=== PATIENT | female | born 1955 | race Caucasian/White ===

== ENCOUNTER 2020-10-03 16:29 | Outpatient (CLI) | payer OTHER, SELFPAY | END 2020-10-03 16:30 | disposition home or self-care (01) | LOC: ANHCOVIDVC 16:29 | PROVIDERS: PCP Family Medicine | DX: Z23 Encounter for immunization (principal) | CPT/HCPCS: 0001A; 91300 ==

== ENCOUNTER 2020-10-24 16:31 | Outpatient (CLI) | payer OTHER, SELFPAY | END 2020-10-24 16:32 | disposition home or self-care (01) | LOC: ANHCOVIDVC 16:31 | PROVIDERS: PCP Family Medicine | DX: Z23 Encounter for immunization (principal) | CPT/HCPCS: 0002A; 91300 ==

== ENCOUNTER 2021-12-03 10:15 | Outpatient (CLI) | payer MEDICARE, OTHER, SELFPAY ==
--- NOTE | 2021-12-03 10:28 | ECG_ITS ---
Measurements Intervals [place] Rate: 52 P: 41 NH: 153 QRS: 38 QRSD: 82 T: 50 QT: 409 QTc: 383 Interpretive Statements SINUS BRADYCARDIA BASELINE WANDER- I, II, AVR, AVL, AVF, V1-V3 BORDERLINE ECG Electronically Signed On 12-03-2021 10:51:43 CDT by Oli Lynn D.O.
== END 2021-12-03 10:16 | disposition home or self-care (01) ==
PROVIDERS: PCP Family Medicine; Visit Provider Physician Assistant
DX: R07.9 Chest pain, unspecified (principal); R94.31 Abnormal electrocardiogram [ECG] [EKG]
CPT/HCPCS: 93005

== ENCOUNTER 2022-07-24 01:15 | Day surgery (SDC) | payer MEDICARE, OTHER, SELFPAY ==
[2022-07-23 12:53] VITALS: BMI 34.0
[2022-07-24] VITALS (19 sets, daily range): BP systolic 91–130; BP diastolic 46–66; PULSE 66–76; RESP 12–18; TEMP 36.8; O2SAT 94–99; BMI 34.2
--- NOTE | 2022-07-24 07:47 | SUR.PREOP ---
pre op started on this pt, pre op medicine benedryl and prednisone taken at 0730 for shellfish allergy.
[2022-07-24 08:03] LABS: Anion Gap 13 mmol/L (8-16); Blood Urea Nitrogen 33 mg/dL (7-17); Calcium 9.1 mg/dL (8.4-10.2); Carbon Dioxide 22 mmol/L (22-30); Chloride 102 mmol/L (98-107); Estimated CRCL calculation 69 ml/min; Estimated Glomerular Filt Rate > 60; Glucose 409 mg/dL (65-110); Potassium 4.9 mmol/L (3.4-5.0); Sodium 137 mmol/L (137-145)
[2022-07-24 08:11] LABS: Basophils Percent Auto 0.3 % (0.2-1.2); Hematocrit 39.5 % (37.0-47.0); Hemoglobin 12.9 g/dL (12.0-15.0); Immature Granulocyte Absolute 0.07 K/mm3 (0.00-0.031); Immature Granulocyte Percent A 0.8 % (0-0.5); Lymphocytes Absolute Auto 0.65 K/mm3 (0.9-3.2); Lymphocytes Percent Auto 7.2 % (18.3-44.2); Mean Corpuscular HGB Conc 32.7 g/dl (32-36); Mean Corpuscular Hemoglobin 31.3 pg (26-34); Mean Corpuscular Volume 95.9 fl (80-100); Mean Platelet Volume 10.5 fl (7.4-10.4); Monocytes Absolute Auto 0.1 K/mm3 (0.1-0.6); Monocytes Percent Auto 0.8 % (2.6-8.5); Neutrophils Absolute Auto 8.3 K/mm3 (1.3-6.7); Neutrophils Percent Auto 90.9 % (45.5-73.1); Platelet Count Result 324 k/mm3 (150-375); Red Blood Count 4.12 M/mm3 (4.2-5.4); Red Cell Distribution Width 12.4 % (11.5-14.5); White Blood Count 9.1 K/mm3 (4.5-10.0)
--- NOTE | 2022-07-24 08:38 | WPDHPUPDATE1 ---
History and Physical Update Update Date/Time: 07/24/22 08:38 History and Physical has been reviewed, including an updated exam of the patient. There are NO changes in the patient's condition. Risks, benefits, and alternatives have been discussed and questions answered. Patient agrees to proceed with procedure.
--- NOTE | 2022-07-24 08:39 | WPDMODSED ---
Moderate Sedation Note-Pt Data Patient Data Diagnosis: Abnormal stress test, angina Present Complaint: None History and physical update: Patient is a pleasant 66-year-old female with a past medical history significant hypertension, type 2 diabetes mellitus with complaints of fatigue, shortness of breath with associated diaphoresis with abnormal treadmill stress echocardiogram hypokinesis of the apical segment a poor exercise tolerance on treadmill referred for left heart catheterization for delineation of her coronary anatomy. Impression/plan of care: Abnormal stress tests, anginal equivalent-left heart catheterization recommendation to follow. Type 2 diabetes mellitus Hypertension Procedure to be performed/Plan: Left heart catheterization with selective left and right coronary angiography with left ventriculography and hemodynamics and possible percutaneous intervention and stent implantation Allergies Allergy/AdvReac Type Severity Reaction Status Date / Time shellfish derived AdvReac Intermediate Diarrhea Verified 07/24/22 07:12 adhesive tape AdvReac Unknown Rash Verified 07/24/22 07:12 clotrimazole AdvReac Unknown RASH Verified 07/24/22 07:12 monosodium glutamate AdvReac Unknown Unknown Verified 07/24/22 07:12 POISON CHRISTOPHER Allergy Unknown RASH Uncoded 07/23/22 12:58 Home Medications Medication Instructions Recorded Confirmed Type aspirin 81 mg capsule 81 mg PO DAILY 12/03/21 07/23/22 History metformin 1,000 mg tablet 1,000 mg PO BID #180 tabs 06/04/22 07/23/22 Rx olmesartan 20 mg tablet 20 mg PO DAILY #90 tabs 06/04/22 07/23/22 Rx repaglinide 2 mg tablet 4 mg PO TID #540 tabs 06/04/22 07/23/22 Rx One Daily Womens 50 Plus 1 tablet PO DAILY 07/23/22 07/23/22 History diphenhydramine HCl 50 mg tablet 50 mg PO ONCE 07/23/22 07/24/22 History flaxseed oil 1,030 mg capsule 1 mg PO DAILY 07/23/22 07/23/22 History prednisone 50 mg tablet 50 mg PO USEASDIRECTD 07/23/22 07/24/22 History Current Medications: Active Medications Sodium Chloride (Normal Saline Iv) 500 mls @ 100 mls/hr IV CONT .Q5H JANE Sedation/Anesthesia: No previous sedation/anesthesia problems (including family history). [facility] Past Medical History Medical History Essential hypertension Mixed hyperlipidemia Normal colonoscopy (~2017) Repeat 5years Type 2 diabetes mellitus without complication, without long-term current use of insulin Surgical History Surgical History H/O knee surgery H/O rotator cuff surgery Hx of tonsillectomy Social History Social History Smoking status: Never smoker Second hand tobacco smoke exposure: No Alcohol intake: current Alcohol use details: rare Substance use: never Substance use type: does not use Current Housing: Decline to Answer Concerned About Future Housing: Decline to Answer Difficulty Paying Gas/Electric Bills: Decline to Answer Difficulty Paying for Meds: Decline to Answer Currently Unemployed: Decline to Answer Education: Decline to Answer Difficulty w/ Childcare or Family Care: Decline to Answer Living arrangements: alone Spiritual care concerns: No Mod Sed Physical Exam Physical Exam Pre Procedural Exam: Normal: Appearance, Eyes, Ears, Nose, Neck (Supple, normal range of motion), Throat (Posterior hypopharynx clear, nonerythematous), Airway (Normal anatomy, no obstruction), Lungs (Clear to auscultation bilaterally), Heart Size, Heart Rate, Heart Rhythm, Neuro Exam, Abdomen, Liver, Kidneys, Extremities and Skin Hours since solid foods: 12 Hours since liquid intake: 12 Mallampati Classification: class II Internal Medicine - PN: Obj Da Vital Signs Vital Signs: Vital Signs - 24 hr 07/24/22 07:17 Temperature 36.8 C Pulse Rate 76 Respiratory Rate 12 Blood Pressure 116/49 L Pulse Oximetry 99
--- NOTE | 2022-07-24 08:44 | PM.OP ---
Procedure Note - Brief Procedure Note - Brief Date of procedure: 07/24/22 Pre-op diagnosis: abn stress test Abnormal stress test, anginal equivalent Procedure performed: Left heart catheterization with selective left and right coronary angiography with left ventriculography and hemodynamics Description of procedure: BRIEF HISTORY OF PRESENT ILLNESS: Patient is a pleasant 66-year-old female with a history of hypertension, diabetes mellitus complains of diaphoresis, fatigue, dyspnea with abnormal stress test with poor exercise tolerance and apical ischemia referred for coronary angiography for delineation of her coronary anatomy. PROCEDURES PERFORMED: 1. Left heart catheterization 2. Selective left and right coronary angiography 3. Left ventricular hemodynamics CATHETERS UTILIZED: Left coronary system- 5 Austrian FL3.5 catheter (FL 4.0 was unable to engage left main) Right coronary system- 5 Austrian FR4 catheter Left ventriculography and hemodynamics- 5 Austrian angled pigtail catheter PROCEDURE IN DETAIL: After verbal and written informed consent was obtained the patient, risks, benefits, and alternatives explained in detail the patient agreed to proceed with the plan of care as outlined above. The patient was subsequently brought to the cardiac catheterization lab, placed on the cardiac catheterization table, and prepped and draped in the usual sterile fashion. Utilizing approximately 19cc of 1% subcutaneous Lidocaine, the right groin was then locally anesthetized. Utilizing the modified Seldinger technique, a 5 Austrian arterial vascular access sheath was inserted in the right common femoral artery easily and without complications. Of note, initial access attempt was a single stick front wall access, however, access was lost and the guidewire was not able to be advanced therefore a manual pressure was held for 7 minutes with excellent hemostasis without noted hematoma or active bleeding. Once again, 2nd attempt was successful with a single attempt front wall access Through this access, coronary angiography was subsequently obtained in multiple standard re-projections. Following this, a 5 Austrian FL 3.5 catheter easily advanced retrograde across aortic valve into the cavity of the left ventricle. Left ventriculography was not performed and pullback across aortic valve was subsequently recorded. The vascular access sheath and angiographic catheters were flushed before and after catheter exchanges. At the conclusion of the diagnostic portion of the procedure, all angiographic guidewires and catheters were removed and the 5 Austrian arterial vascular access sheath was then pulled and satisfactory hemostasis was achieved using manual compression. There no complications noted at the conclusion of the diagnostic portion of the study. MODERATE SEDATION/ANESTHESIA ADMINISTRATION: Patient reports no prior problems with sedation/anesthesia. Please see pre-sedation noted for physical examination documentation. Per patient request she wished to avoid moderate sedation if possible which we were able to accommodate. Patient was under my supervision with intra-procedure [id number] observation and management throughout the entirety of the procedure. There were no other issues or complications and patient tolerated the procedure well. See post-anesthesia documentation. Implants: N/A Surgeon: Tad Castillo MD Estimated blood loss (mL): 5 Complications: No immediate complications Condition: Stable Disposition: Same day Findings: CORONARY ANGIOGRAPHY: The LEFT MAIN arose from the left coronary cusp and revealed distal 10-20% stenosis. The left main then bifurcated into the left anterior descending artery and circumflex coronary artery. LEFT ANTERIOR DESCENDING ARTERY: Moderate to large caliber vessel extending to and wrapping around the LV apex gave raise to small caliber 1st diagonal branch. There is diffuse proximal 30% stenosis with mild calc
--- NOTE | 2022-07-24 14:14 | SUR.PHASEII ---
This RN started going over discharge paperwork with pt. When this RN educated pt about starting atorvastatin per Dr. Castillo request, pt refused to agree to take this medication due to family members having an allergy to it. RN called MD to see if there is a different medication to start. RN will continue to educate pt about importance of this medication.
== END 2022-07-24 14:40 | disposition home or self-care (01) ==
PROVIDERS: PCP Family Medicine; Visit Provider Internal Medicine Cardiovascular Disease
PROC: 4A023N7 Measurement of Cardiac Sampling and Pressure, Left Heart, Percutaneous Approach (ICD-10-PCS; CPT 93452; principal; 2022-07-24 08:30)
DX: R94.39 Abnormal result of other cardiovascular function study (principal); I25.10 Atherosclerotic heart disease of native coronary artery without angina pectoris; R53.83 Other fatigue; R06.00 Dyspnea, unspecified; I10 Essential (primary) hypertension; E11.9 Type 2 diabetes mellitus without complications
CPT/HCPCS: 36415; 80048; 85025; 93458; C1887; C1894; J0461; J1644; J7040

== ENCOUNTER → 2023-05-05 12:44 | Outpatient (CLI) | payer MEDICARE, OTHER, SELFPAY ==
--- NOTE | ~2023-05-05 | XR_ITS ---
XR knee LT 3V 05/05/2023 14:34 Indication: Left knee pain Procedure: 3 views left knee Comparison: No prior studies for comparison. Findings: Severe tricompartment osteoarthritis. There is atherosclerosis. No fracture or traumatic ma lalignment. No significant joint effusion. No foreign bodies. Impression: 1: Severe tricompartment osteoarthritis, most advanced in the patellofemoral joint. Reviewed, dictated and finalized at location B. Impression: 1: Severe tricompartment osteoarthritis, most advanced in the patellofemoral mark int.
--- NOTE | ~2023-05-05 | XR_ITS ---
EXAMINATION: XR lumbar spine 2-3V DATE: 05/05/2023 14:34 INDICATION: Sciatica, unspecified site. TECHNIQUE: 3 views of lumbar spine were obtained. COMPARISON: None. FINDINGS: There is 7 degrees levocurvature of thoracolumbar spine. There is 3 mm anterolisthesis of L 4 and L5. Vertebral body heights are normal. There is mildly decreased disc height at L3-L4 and L4-L5 . There are endplate osteophytes at all levels. There is multilevel facet joint osteoarthritis, sever e at multiple levels in lumbar spine. IMPRESSION: 1. Mild lumbar spondylosis. Reviewed, dictated and finalized at location A. IMPRESSION: 1. Mild lumbar spondylosis.
== END ==
PROVIDERS: PCP Family Medicine; Visit Provider Family Medicine
DX: M54.30 Sciatica, unspecified side (principal); M47.896 Other spondylosis, lumbar region; M17.12 Unilateral primary osteoarthritis, left knee
CPT/HCPCS: 72100; 73562

== ENCOUNTER 2023-06-05 09:49 | Outpatient (CLI) | payer MEDICARE, OTHER, SELFPAY ==
--- NOTE | ~2023-06-05 | XR_ITS ---
Right Knee Technique: AP, lateral, and sunrise views were obtained. Clinical History: Pain Findings: No fracture or dislocation is seen. There is advanced degenerative change of the medial and patellofemoral compartments, and moderate degenerative change of the lateral compartment. There is m edial compartment narrowing. Soft tissues are unremarkable. No joint effusion is seen. Impression: Advanced degenerative change of the medial and patellofemoral compartment. Moderate degenerative change of the lateral compartment. Reviewed, dictated and finalized at location M. T DEVELOPER Impression: Advanced degenerative change of the medial and patellofemoral compartment. Moderate degenerative change of the lateral compartment.
--- NOTE | ~2023-06-05 | XR_ITS ---
Left foot Technique: AP, oblique, and lateral views were obtained. Clinical History: Pain Findings: No acute fracture or dislocation is seen. Osseous alignment is anatomic. There is mild to m oderate degenerative change of the tarsometatarsal joints. Soft tissues are unremarkable. Impression: Mild to moderate degenerative change of the tarsometatarsal joints. Reviewed, dictated and finalized at location . RAL MACHINE OPERATOR Impression: Mild to moderate degenerative change of the tarsometatarsal joints.
== END 2023-06-05 09:50 | disposition home or self-care (01) ==
PROVIDERS: PCP Family Medicine; Visit Provider Physician Assistant
DX: M17.11 Unilateral primary osteoarthritis, right knee (principal); M19.072 Primary osteoarthritis, left ankle and foot
CPT/HCPCS: 73564; 73630

== ENCOUNTER → 2023-09-29 14:11 | Outpatient (CLI) | payer MEDICARE, OTHER, SELFPAY ==
--- NOTE | ~2023-09-29 | US_ITS ---
EXAMINATION: US transvaginal DATE: 09/29/2023 14:47 INDICATION: Postmenopausal bleeding. TECHNIQUE: Multiple transvaginal sonographic images of the pelvis were obtained. COMPARISON: None. FINDINGS: The uterus measures 5.3 x 2.6 x 3.0 cm. There is no free fluid in the pelvis. The endometrial complex measures 6 mm in thickness. The right ovary measures 2.0 x 1.1 x 1.6 cm. The left ovary is not visua lized. IMPRESSION: 1. Thickened endometrial complex. The differential diagnosis includes endometrial hyperplasia, polyp, and carcinoma. Biopsy is recommended. Reviewed, dictated and finalized at location E. WASHER IMPRESSION: 1. Thickened endometrial complex. The differential diagnosis includes endometri al hyperplasia, polyp, and carcinoma. Biopsy is recommended.
== END ==
PROVIDERS: PCP Nurse Practitioner; Visit Provider Nurse Practitioner
DX: N95.0 Postmenopausal bleeding (principal)
CPT/HCPCS: 76830

== ENCOUNTER 2023-10-14 07:43 | Outpatient (CLI) | payer MEDICARE, OTHER, SELFPAY ==
[2023-10-14 08:40] LABS: Anion Gap 4 mmol/L (8-16); Blood Urea Nitrogen 18 mg/dL (7-17); Calcium 9.5 mg/dL (8.4-10.2); Carbon Dioxide 31 mmol/L (22-30); Chloride 104 mmol/L (98-107); Estimated Glomerular Filt Rate > 60; Glucose 146 mg/dL (65-110); Potassium 4.3 mmol/L (3.4-5.0); Sodium 139 mmol/L (137-145)
== END 2023-10-14 07:44 | disposition home or self-care (01) ==
PROVIDERS: Anesthesiology; PCP Family Medicine; Visit Provider Obstetrics & Gynecology Gynecology
DX: E11.9 Type 2 diabetes mellitus without complications (principal); Z01.818 Encounter for other preprocedural examination
CPT/HCPCS: 36415; 80048

== ENCOUNTER 2023-10-20 01:25 | Day surgery (SDC) | payer MEDICARE, OTHER, SELFPAY ==
[2023-10-13 14:22] VITALS: BMI 34.1
--- NOTE | 2023-10-13 14:47 | PC.NURSE ---
Report to the Outpatient Waiting Room, entrance under the green pavilion located off [facility], at time __8:15AM on date ___10/20/23____. Planned Procedure Time: __10:15AM . Time changes happen often and if your time is changed the preop area will call you the afternoon before. - You and your visitor will be asked to self-screen and do not enter if you have any COVID symptoms. - A mask is optional within the hospital at this time. Patients may have clear liquids (water, carbonated beverages, clear teas, apple juice) until 3 hours prior to surgery with a maximum of 20 ounces. - No food from midnight until time of surgery. Take the following medications with a SIP of water the morning of surgery: NONE DO NOT STOP ANY OF YOUR OTHER PRESCRIPTION MEDICATIONS PRIOR TO SURGERY ?EXCEPT THE FOLLOWING Medications to discontinue per physician ___NO NEED TO HOLD BRILINTA OR ASPIRIN PER DR JACKSON PER PATIENT. HOLD ALL VITAMINS/SUPPLEMENTS 3 DAYS PRE-OP PER ANESTHESIA Date to take last dose___10/16/23 Please no make-up, nail luxembourgish, hairspray, perfume, deodorant, or body powder the day of surgery. No jewelry (including any body piercings) or valuables the day of surgery, leave them at home. Please take a shower or bath the night before, or the morning of, surgery with an antibacterial soap. Wear comfortable, loose fitting clothing. - Jewelry must be removed prior to entering the operating room. Rings and piercings that are not removed may be cut off. - The hospital will not accept responsibility for valuables. - Please leave all valuables, including medications, at home the day of surgery. If you are going home after surgery, a licensed shuttle van driver must drive you home. - NO public transportation without another adult if you receive anesthesia. - We recommend that an adult stay with you for 24 hours following discharge. - We also recommend that you do not drive, make important decision, drink alcoholic beverages, or take any drugs that were not prescribed by your health care provider for at least 24 hours after your discharge time. Follow any additional instructions given to you from your surgeon. If you or anyone in your household have experienced Covid symptoms in the past week, please notify your surgeon or the nurse liaison at the phone number below for possible testing. Telephone instructions given to ____PATIENT and asked if any additional questions and then verbalized understanding. Patient advised to call surgeon office or pre surgery nurse liaison [phone] if any additional questions.
--- NOTE | 2023-10-20 07:44 | WPDHPUPDATE1 ---
History and Physical Update Update Date/Time: 10/20/23 07:44 History and Physical has been reviewed, including an updated exam of the patient. There are NO changes in the patient's condition. Risks, benefits, and alternatives have been discussed and questions answered. Patient agrees to proceed with procedure.
--- NOTE | 2023-10-20 07:44 | PM.HPGS ---
History of Present Illness History of Present Illness Consent: Risks, benefits, and alternatives have been discussed and questions answered. Patient agrees to proceed with procedure. Chief complaint: post menopausal bleeding Narrative: Anjana Mireles is a 68 year old female with postmenopausal bleeding. Pelvic ultrasound showed thickened endometrium. It was recommended to undergo D&C hysteroscopy. Patient took Cytotec for 1 week prior due to history of stenosis. Risks infection, bleeding, perforation, and possible pathology are reviewed. Also reviewed the possibility of not being able to enter the cervical canal. The patient voices understanding and agrees to proceed. Review of Systems Review of Systems: not repeated day of surgery; patient states no changes in status PMFSH Past Medical History Medical History (Updated 10/20/23 @ 07:49 by Karena Caldwell MD) CAD (coronary artery disease) Essential hypertension Mixed hyperlipidemia Normal colonoscopy (~2016) Repeat 5years Type 2 diabetes mellitus without complication, without long-term current use of insulin Surgical History Surgical History (Updated 10/20/23 @ 07:47 by Karena Caldwell MD) H/O knee surgery H/O rotator cuff surgery History of heart artery stent x2 Hx of tonsillectomy Social History Social History Smoking status: Never smoker Second hand tobacco smoke exposure: No Alcohol intake: current Alcohol use details: rare Substance use: never Substance use type: does not use Current Housing: Decline to Answer Concerned About Future Housing: Decline to Answer Difficulty Paying Gas/Electric Bills: Decline to Answer Difficulty Paying for Meds: Decline to Answer Currently Unemployed: Decline to Answer Education: Decline to Answer Difficulty w/ Childcare or Family Care: Decline to Answer Living arrangements: alone Additional living arrangements comments: DOESN'T WANT TO ANSWER Spiritual care concerns: No Meds Home Medications and Allergies Home Medications Medication Instructions Recorded Confirmed Type aspirin 81 mg capsule 81 mg PO DAILY 12/03/21 10/17/23 History flaxseed oil 1,030 mg capsule 1 mg PO BID 07/23/22 10/17/23 History coenzyme Q10-red yeast rice 25 2 cap PO DAILY 12/05/22 10/17/23 History mg-600 mg capsule repaglinide 2 mg tablet 4 mg PO TID #540 tabs 05/07/23 10/17/23 Rx metformin 1,000 mg tablet 1,000 mg PO BID #180 tabs 08/06/23 10/17/23 Rx bergamot extract 500 mg capsule 500 mg PO BID 10/13/23 10/17/23 History ([place] Bergamot) kjiefeqfnyyg-Nm-knnh-minerals 1 tablet PO DAILY 10/13/23 10/17/23 History olmesartan 20 mg tablet 20 mg PO QAM 10/13/23 10/17/23 History ticagrelor 60 mg tablet (Brilinta) 60 mg PO BID 10/13/23 10/17/23 History Allergies Allergy/AdvReac Type Severity Reaction Status Date / Time Bnppzcc-GIK-[id number] Reductase AdvReac Severe Muscle Pain Verified 10/17/23 14:04 Inhibitor shellfish derived AdvReac Intermediate Diarrhea, Verified 10/17/23 14:04 vomiting adhesive tape AdvReac Unknown Rash Verified 10/17/23 14:04 clotrimazole AdvReac Unknown RASH Verified 10/17/23 14:04 monosodium glutamate AdvReac Unknown flushing, Verified 10/17/23 14:04 red skin POISON CHRISTOPHER Allergy Unknown RASH Uncoded 10/17/23 14:04 Exam Const: General: healthy appearing and alert Orientation/consciousness: patient oriented x3 Resp: Effort & Inspection: normal respiratory effort : External Female Exam: normal external appearance Speculum Exam - Vagina: other ( vaginal adhesions) Speculum Exam - Cervix: Other cervical findings present ( cervix very difficult to visualize) Bimanual exam- vagina & uterus: other ( uterus small 5cm by ultrasound) Bimanual Exam- Adnexa, other: normal adnexae and No adnexal tenderness Neuro: General: patient oriented x3 Assessment and Plan Assessment and plan (1) Post-
[2023-10-20 08:05] VITALS: BP 144/64; PULSE 73; RESP 18; TEMP 36.8; O2SAT 100
[2023-10-20] MEDS: LACTATED RINGERS 1,000 ML 30 ML IV CONT (08:30)
[2023-10-20 08:44] LABS: Glucose Point of Care 110 mg/dl (65-105)
--- NOTE | 2023-10-20 09:02 | SUR.PREOP ---
MADE AWARE OF PT REQUEST NOT TO HAVE STUDENTS OR OBSERVERS ADDRESSED BY PT ON CONSENT LINE NUMBER 6.
--- NOTE | 2023-10-20 09:43 | WPDANESEPPF ---
Anes - Initial Pre Proc Eval Procedure: Operation Date: 10/20/23 10:15 Proposed Procedures p Hysteroscopy Dilation and Curettage - Karena Caldwell MD Date/Time: 10/20/23 09:43 Surgeon: Karena Caldwell MD Pre Op Diagnosis: post menopausal bleeding Patient Data Age: 68 Gender: F Height: 1.65 m Weight: 90.6 kg Last Vital Signs Temp 36.8 C 10/20/23 08:05 Pulse 73 10/20/23 08:05 Resp 18 10/20/23 08:05 BP 144/64 H 10/20/23 08:05 Pulse Ox 100 10/20/23 08:05 O2 Del Method Room Air 10/20/23 08:05 Allergies Allergy/AdvReac Type Severity Reaction Status Date / Time Qbateqo-YUE-HaR Reductase AdvReac Severe Muscle Pain Verified 10/20/23 08:45 Inhibitor shellfish derived AdvReac Intermediate Diarrhea, Verified 10/20/23 08:45 vomiting adhesive tape AdvReac Unknown Rash Verified 10/20/23 08:45 clotrimazole AdvReac Unknown RASH Verified 10/20/23 08:45 monosodium glutamate AdvReac Unknown flushing, Verified 10/20/23 08:45 red skin POISON CHRISTOPHER Allergy Unknown RASH Uncoded 10/20/23 08:45 Home Medications Medication Instructions Recorded Confirmed Type aspirin 81 mg capsule 81 mg PO DAILY 12/03/21 10/20/23 History flaxseed oil 1,030 mg capsule 1 mg PO BID 07/23/22 10/20/23 History coenzyme Q10-red yeast rice 25 2 cap PO DAILY 12/05/22 10/20/23 History mg-600 mg capsule repaglinide 2 mg tablet 4 mg PO TID #540 tabs 05/07/23 10/20/23 Rx metformin 1,000 mg tablet 1,000 mg PO BID #180 tabs 08/06/23 10/20/23 Rx bergamot extract 500 mg capsule 500 mg PO BID 10/13/23 10/20/23 History ([place] Bergamot) wbsqjyxpkfbh-Fc-grio-minerals 1 tablet PO DAILY 10/13/23 10/20/23 History olmesartan 20 mg tablet 20 mg PO QAM 10/13/23 10/20/23 History ticagrelor 60 mg tablet (Brilinta) 60 mg PO BID 10/13/23 10/20/23 History Laboratory Tests 10/20/23 08:42 POC Capillary Glucose 110 H mg/dl (65-105) Patient hx anesthesia problems: none Family hx anesthesia problems: none Results Review: All pre-operative results and documents have been reviewed as part of the pre-operative evaluation. [facility] Past Medical History Medical History CAD (coronary artery disease) Essential hypertension Mixed hyperlipidemia Normal colonoscopy (~2017) Repeat 5years Type 2 diabetes mellitus without complication, without long-term current use of insulin Surgical History Surgical History H/O knee surgery H/O rotator cuff surgery History of heart artery stent x2 Hx of tonsillectomy Social History Social History Smoking status: Never smoker Second hand tobacco smoke exposure: No Alcohol intake: current Alcohol use details: rare Substance use: never Substance use type: does not use Current Housing: Decline to Answer Concerned About Future Housing: Decline to Answer Difficulty Paying Gas/Electric Bills: Decline to Answer Difficulty Paying for Meds: Decline to Answer Currently Unemployed: Decline to Answer Education: Decline to Answer Difficulty w/ Childcare or Family Care: Decline to Answer Living arrangements: alone Additional living arrangements comments: DOESN'T WANT TO ANSWER Spiritual care concerns: No Anes - Eval Final PreProcedure Day of Procedure 10/20/23 09:43 Patient weight: obese Heart: regular rate and rhythm Lungs: decreased breath sounds Airway: Mallampati scale class II Neurological: alert and oriented Last oral intake: >/= 8 hours ASA classification: III Emergent: no Anesthetic plan: proceed Anesthesia type and monitoring: general GIVS and standard monitoring Results Review: All pre-operative results and documents have been reviewed as part of the pre-operative evaluation. Informed Consent: The patient's anesthetic plan and its attendant risks and benefi
--- NOTE | 2023-10-20 10:24 | W.PM.PROC2 ---
Procedure Note - Detailed Date of Procedure 10/20/23 Pre-op Diagnosis post menopausal bleeding Post-op Diagnosis Same Procedure Performed D&C hysteroscopy Surgeon Karena Caldwell MD Anesthesia MAC Findings the uterus sounds to5.5cm and appears grossly atrophic; there is a polyp and scarring at the left sidewall Description of Procedure The patient is taken to the operating room and placed under anesthesia in the dorsal lithotomy position. She was prepped and draped in the usual sterile fashion. [place] speculum was placed in the vagina. The cervix was grasped on the anterior lip with a tenaculum. The uterus is sounded to 5.5cm. The hysteroscope was placed in the cervix and then the speculum removed from the vagina. The hysteroscope was hydrodissected into the endometrial cavity the cavity appears as above. The small Aveeta resection device is placed through the hysteroscope and polyp and adhesions removed in their entirety. The hysteroscope was then removed. The speculum was replaced and the OO sharp curette used to curette the endometrium until a good uterine cry was noted on all areas. Minimal, if any, material was obtained during this process consistent with the severely atrophic endometrium. All instruments are removed. Sponge, needle, and instrument counts are correct per the OR staff. Patient is awakened from anesthesia and taken to recovery in stable condition. Estimated Blood Loss 5 Drains No Packing No Pathology Yes ( Endometrial shavings and curettings) Complications No immediate complications Condition Stable Disposition PACU
[2023-10-20 10:26] VITALS: BP 108/53; PULSE 70; RESP 16; O2SAT 95
[2023-10-20 10:45] VITALS: BP 108/47; PULSE 60; RESP 16; O2SAT 96
[2023-10-20 11:10] VITALS: BP 129/65; PULSE 66; RESP 16
[2023-10-20 11:46] LABS: Glucose Point of Care 63 mg/dl (65-105)
== END 2023-10-20 11:25 | disposition home or self-care (01) ==
PROVIDERS: PCP Family Medicine; Visit Provider Obstetrics & Gynecology Gynecology
PROC: 0U5B8ZZ Destruction of Endometrium, Via Natural or Artificial Opening Endoscopic (ICD-10-PCS; CPT 58563; principal; 2023-10-20 10:15)
DX: N95.0 Postmenopausal bleeding (principal); N85.8 Other specified noninflammatory disorders of uterus; I10 Essential (primary) hypertension; E78.2 Mixed hyperlipidemia; E11.9 Type 2 diabetes mellitus without complications; I25.10 Atherosclerotic heart disease of native coronary artery without angina pectoris; E66.9 Obesity, unspecified; Z68.33 Body mass index [BMI] 33.0-33.9, adult; Z79.82 Long term (current) use of aspirin; Z79.84 Long term (current) use of oral hypoglycemic drugs; Z79.02 Long term (current) use of antithrombotics/antiplatelets; Z98.890 Other specified postprocedural states; Z95.5 Presence of coronary angioplasty implant and graft
CPT/HCPCS: 58558; 82948; 88305; J2250; J2405; J2704; J3010; J7120

== ENCOUNTER 2023-10-24 10:22 | Outpatient (CLI) | payer MEDICARE, OTHER, SELFPAY ==
--- NOTE | ~2023-10-24 | CT_ITS ---
EXAMINATION: CT abdomen pelvis wo con DATE: 10/24/2023 13:11 INDICATION: Right lower quadrant abdominal pain. Other chronic pain. TECHNIQUE: Computed tomography (CT) of the abdomen and pelvis was performed without intravenous contr ast. Automated exposure control and iterative reconstruction technique were employed. The dose-length product was 965.51 mGy-cm. COMPARISON: CT abdomen and pelvis 04/16/2005 FINDINGS: The visualized portions of the lung bases demonstrate mild bronchiectasis. There is a 7 mm nodule in left lower lobe. No pleural effusion. The heart size is normal. There are coronary artery c alcifications. No pericardial effusion. The liver, gallbladder, spleen, pancreas, adrenal glands, and left kidney are normal. There is a 2 mm stone in right kidney. There are widespread arterial calcifi cations. There are no dilated loops of bowel. The appendix is normal. There are no pathologically enl arged lymph nodes. There is no free intraperitoneal fluid. There is severe lumbar spondylosis. IMPRESSION: 1. 7 mm pulmonary nodule, new from 04/16/2005, probably benign. Noncontrast low-dose chest CT is recom mended in 6 months. Reviewed, dictated and finalized at location E. IMPRESSION: 1. 7 mm pulmonary nodule, new from 04/16/2005, probably benign. Noncontrast low- dose chest CT is recommended in 6 months.
== END 2023-10-24 10:23 ==
LOC: MICIMG 10:23
PROVIDERS: PCP Family Medicine; Visit Provider Physician Assistant Medical
DX: R10.9 Unspecified abdominal pain (principal); G89.29 Other chronic pain; R91.1 Solitary pulmonary nodule
CPT/HCPCS: 74176

== ENCOUNTER 2024-04-16 11:12 | Outpatient (CLI) | payer MEDICARE, OTHER, SELFPAY ==
--- NOTE | ~2024-04-16 | CT_ITS ---
EXAMINATION: CT diagnostic chest wo con DATE: 04/16/2024 11:36 INDICATION: R91.1 - Solitary pulmonary nodule TECHNIQUE: Computed tomography (CT) of the chest was performed without intravenous contrast. Addition al 3D reconstructions utilizing coronal maximum intensity projection (MIP) were performed. Automated exposure control and iterative reconstruction technique were employed. The dose-length product was 19 2.83 mGy-cm. COMPARISON: CT dated 10/24/2023 FINDINGS: No interval change in a 7 x 6 mm left lower lobe nodule. Also unchanged is a 3 mm nodule in the right middle lobe. No other pulmonary nodules identified. No pneumonia, pulmonary edema or pleural effusio n. Heart size normal. Atherosclerotic coronary artery calcific lesion. No pericardial effusion. Thora cic aorta is normal in caliber. No pathologically enlarged thoracic lymphadenopathy. Mild thoracic sp ondylosis with bridging osteophytes at multiple levels consistent with diffuse idiopathic skeletal hy perostosis (DISH). IMPRESSION: 1. Unchanged likely benign 7 mm left lower lobe pulmonary nodule. Would consider additional twelve-mo nth low-dose noncontrast chest CT. Reviewed, dictated and finalized at location B. IMPRESSION: 1. Unchanged likely benign 7 mm left lower lobe pulmonary nodule. Would conside r additional twelve-month low-dose noncontrast chest CT.
== END 2024-04-16 11:13 | disposition home or self-care (01) ==
LOC: MICIMG 11:13
PROVIDERS: PCP Family Medicine; Visit Provider Family Medicine
DX: R91.1 Solitary pulmonary nodule (principal)
CPT/HCPCS: 71250

== ENCOUNTER 2025-01-03 13:37 | Outpatient (CLI) | payer MEDICARE, OTHER, SELFPAY ==
--- NOTE | ~2025-01-03 | US_ITS ---
Thyroid ultrasound. Clinical History: Nontoxic thyroid nodule Findings: Real-time sonography of the thyroid gland was performed. The right lobe measures 4.7 x 1.4 x 1.7 cm. The left lobe measures 4.6 x 1.3 x 1.4 cm. The isthmus is 2 mm in AP diameter. Suspected subtle 1.2 x 0.6 x 0.9 cm hypoechoic solid nodule at the right lower pole. Impression: 1.2 cm TR-4 nodule at the right lower pole. Annual follow-up exam advised.. Reviewed, dictated and finalized at location M. Impression: 1.2 cm TR-4 nodule at the right lower pole. Annual follow-up exam advised..
--- NOTE | ~2025-01-03 | US_ITS ---
CAROTID ULTRASOUND Ordering provider: aDphne Deleon MD History: . R42 - Dizziness and giddiness . Comparison: None. Technique: Grayscale and color Doppler ultrasound examination of the carotid and vertebral artery sys tems bilaterally. Maximum peak systolic velocity (PSV) / end diastolic velocity (EDV) measurements we re 0.5. FINDINGS: RIGHT: --Distal COMMON CAROTID ARTERY: PSV is 66.9 cm/s. EDV is 14.2 cm/s. --EXTERNAL CAROTID ARTERY: PSV is 47.20 cm/s. --INTERNAL CAROTID ARTERY MID: PSV is 77.9 cm/s. EDV is 23 cm/s. --VERTEBRAL ARTERY: Antegrade flow with normal waveform. --SYSTOLIC ICA/CCA: 1.2. --ATHEROMATOUS DISEASE: None. LEFT: --Distal COMMON CAROTID ARTERY: PSV is 59.2 cm/s. EDV is 16.4 cm/s. --EXTERNAL CAROTID ARTERY: PSV is 59.2 cm/s. --INTERNAL CAROTID ARTERY DISTAL: PSV is 78.5 cm/s. EDV is 25.7 cm/s. --VERTEBRAL ARTERY: Antegrade flow with normal waveform. --SYSTOLIC ICA/CCA: 1.3. --ATHEROMATOUS DISEASE: Mild. --OTHER: None. IMPRESSION: 1. No significant stenosis seen. 2. Antegrade flow demonstrated within both vertebral arteries. Reviewed, dictated and finalized at location A.
== END 2025-01-03 13:38 | disposition home or self-care (01) ==
LOC: ANHIMG 13:39
PROVIDERS: PCP Family Medicine; Visit Provider Family Medicine
DX: E04.1 Nontoxic single thyroid nodule (principal); I25.10 Atherosclerotic heart disease of native coronary artery without angina pectoris; E78.2 Mixed hyperlipidemia
CPT/HCPCS: 76536; 93880